=== PATIENT | male | born 1990 | race Caucasian/White ===

== ENCOUNTER 2022-03-19 15:55 | Inpatient (IN) | payer MEDICAID ==
[~2022-03-19] VITALS: Ht 182.9 cm; Wt 83.9 kg
[2022-03-19 16:03] VITALS: BP 120/62
--- NOTE | 2022-03-19 16:23 | NUR ---
31YO MALE PT C/O SHARP 10/10 L LEG PAIN X1WEEK. REPORTS INITIAL SWELLING AFTER "PICKING AT [facility]". PRESENTS W/ ABSCESS IN L UPPER LEG : + REDDENED, HOT AND TENDER TO TOUCH . MILD SWELLING NOTED AROUND, CAP REFILL <3 THROUGHOUT. PAIN AT MOST ON MOVEMENT .NOTES "YELLOW, WHITE AND RED " DRAINAGE ON PRESSURE, NO ACTIVE DRAINAGE AT THIS TIME. REPORTS NAUSEA , CHILLS AND FEVER OF 101.0 xtoday W/ RELIEF AFTER TAKING IBUPROFEN. DENIES V/D, CHEST PAIN OR SOB. PT AAOX4, ON BUILD AND DEPLOYMENT ENGINEER. HX: DENIES NKA
[2022-03-19] MEDS ORDERED: LIDOCAINE/EPI 2% 1:100000 20 ML VIAL INJ ONE (16:30)
--- NOTE | 2022-03-19 16:54 | NUR ---
pt swabbed for covid(luis). handed to lab
[2022-03-19] MEDS ORDERED: VANCOMYCIN 1,000 MG in DEXTROSE 5% 250 ML IV ONE (16:55)
[2022-03-19] MEDS ORDERED: ACETAMINOPHEN 325 MG TAB PO ONE (16:55)
[2022-03-19] MEDS ORDERED: PIPERACILLIN/TAZOBACTAM 3.375 GM in DEXTROSE 5% 50 ML IV ONE (16:55)
[2022-03-19] MEDS ORDERED: ONDANSETRON 4 MG/2 ML VIAL IVP ONE (16:55)
[2022-03-19] MEDS ORDERED: NACL 0.9% 3,000 ML IV ONE (16:55)
[2022-03-19] MEDS ORDERED: MORPHINE SULFATE 4 MG/ML SYR IVP ONE (16:55)
[2022-03-19] MEDS ORDERED: VANCOMYCIN 1,000 MG VIAL ONE (17:09)
[2022-03-19] MEDS ORDERED: PIPERACILLIN/TAZOBACTAM 3.375 GM VIAL IV ONE (17:11)
[2022-03-19 17:18] LABS: BASOPHILS # (AUTO) 0.1 K/uL (0.00-0.22); BASOPHILS % (AUTO) 0.6 % (0.0-2.0); EOSINOPHILS % (AUTO) 0.2 % (0.0-4.0); HEMATOCRIT 39.2 % (36-52); HEMOGLOBIN 13.3 g/dL (12.0-18.0); LYMPHOCYTES # (AUTO) 1.1 K/uL (2.0-11.5); LYMPHOCYTES % (AUTO) 8.9 % (20.5-51.1); MEAN CORPUSCULAR HEMOGLOBIN 30 pg (27-31); MEAN CORPUSCULAR HGB CONC 34 g/dL (33-37); MEAN CORPUSCULAR VOLUME 88.6 fL (80-94); MONOCYTES # (AUTO) 1.1 K/uL (0.8-1.0); MONOCYTES % (AUTO) 8.8 % (1.7-9.3); NEUTROPHILS # (AUTO) 10.4 K/uL (1.8-7.7); NEUTROPHILS % (AUTO) 81.5 % (42.2-75.2); PLATELET COUNT (AUTO) 306 K/uL (140-450); RED BLOOD CELL COUNT(AUTO) 4.43 MIL/uL (4.20-6.10); RED CELL DISTRIBUTION WIDTH 13.2 % (11.6-13.7); WHITE BLOOD COUNT (AUTO) 12.8 K/uL (4.8-10.8)
--- NOTE | 2022-03-19 17:20 | NUR ---
PT TAKEN TO XRAY VIA [facility]
--- NOTE | 2022-03-19 17:37 | NUR ---
PT BROUGHT BACK VIA LI[facility]
[2022-03-19 17:39] LABS: PROTHROMBIN TIME 10.2 secs (10.8-13.4)
[2022-03-19 17:42] LABS: ALBUMIN 3.2 g/dL (3.4-5.0); ANION GAP 10.5 (8-16); CARBON DIOXIDE 28.2 mmol/L (21-32); POTASSIUM 3.7 mmol/L (3.5-5.1); TOTAL BILIRUBIN 0.5 mg/dL (0.0-1.0)
[2022-03-19] MEDS ORDERED: ONDANSETRON 4 MG/2 ML VIAL IM/IVP PRN (19:05)
[2022-03-19] MEDS ORDERED: POTASSIUM CHLORIDE 10 MEQ TABER PO PRN (19:05)
[2022-03-19] MEDS ORDERED: SODIUM PHOS / POTASSIUM PHOS 1 PKT PDR PO PRN (19:05)
[2022-03-19] MEDS ORDERED: DOCUSATE SODIUM 100 MG GELCAP PO PRN (19:05)
[2022-03-19] MEDS ORDERED: MAGNESIUM OXIDE 400 MG TAB PO PRN (19:05)
[2022-03-19] MEDS ORDERED: MORPHINE SULFATE 2 MG/ML SYR IVP PRN (19:05)
[2022-03-19] MEDS ORDERED: VANCOMYCIN PER PHARMACY MC PRN (19:10)
[2022-03-19] MEDS: NACL 0.9% 1,000 ML IV SCH (19:34)
--- NOTE | 2022-03-19 19:40 | NUR ---
REPORT GIVEN TO EMMANUEL JOSHUA. TRANSFER OF CARE AT THIS TIME
[2022-03-19 19:42] LABS: MAGNESIUM 1.7 mg/dL (1.8-2.4); PHOSPHORUS 3.2 mg/dL (2.5-4.9)
--- NOTE | 2022-03-19 20:09 | NUR ---
Note jada in EDM - 03/19/22 at 7 by RICARDO Patient discharged with v/s stable. Written and verbal after care instructions given and explained. Patient verbalized understanding. Ambulatory with steady gait. All questions addressed prior to discharge. Advised to follow up with PMD.
--- NOTE | 2022-03-19 20:09 | NUR ---
Patient will be admitted to care of [facility]. Admited to [facility]. Will go to [id number]. Belongings list completed. Report to GERARDO MOON.
--- NOTE | 2022-03-19 22:00 | NUR ---
RECEIVED REPORT FROM ANN FERNÁNDEZ RN FOR CONTINUITY OF CARE. PT ARRIVED ON MST UNIT FROM ER VIA GURNEY. PT IS STABLE. A&OX4. DENIES PAIN AT THIS TIME. ON ROOM AIR/O2 WITH NO ACUTE DISTRESS. RR EVEN AND UNLABORED WITH EQUAL CHEST RISE. GI INTACT. PT'S SKIN WITH L INNER THIGH ABSCESS RAISED SKIN AND HOT TO TOUCH. WD IS DRY AT THIS TIME. PT IS AMBULATORY AND CONTINENT. IV'S RAC 20G AND LAC 20G. IVF NS@40CC/HR. ABX'S ROCEPHIN AND VANCOMYCIN. ALL SAFETY MEASURES IN PLACE. BED IN LOW AND LOCKED POSITION. CALL LIGHT WITHIN REACH. WILL CONTINUE TO MONITOR.
[2022-03-19] MEDS ORDERED: cefTRIAXone 1,000 MG VIAL ONE (22:35)
[2022-03-20] MEDS ORDERED: VANCOMYCIN 1,000 MG in DEXTROSE 5% 250 ML IV ONE (01:00)
[2022-03-20] MEDS ORDERED: VANCOMYCIN 1,000 MG VIAL ONE (03:09)
--- NOTE | 2022-03-20 03:37 | NUR ---
C/O L THIGH PAIN 10/11. MEDICATED WITH NORCO 1 TAB. REASSESSED PAIN LEVEL @0430. EFFECTIVE PT SLEEPING RR EVEN AND UNLABORED NAD. VSS: BP-116/73, P-72, RR-18, T-98.9, O2 SAT=99% ON RM AIR. STILL NEED URINE SPECIMEN FOR DRUG SCREEN. WILL ENDORSE TO DAY SHIFT TO FOLLOW UP.
[2022-03-20] MEDS: HYDROcodone/APAP 5/325 MG 1 TAB TAB PO PRN (03:38)
[2022-03-20 05:57] LABS: BASOPHILS % (AUTO) 0.2 % (0.0-2.0); EOSINOPHILS # (AUTO) 0.1 K/uL (0-0.4); EOSINOPHILS % (AUTO) 0.5 % (0.0-4.0); HEMATOCRIT 34.9 % (36-52); HEMOGLOBIN 11.5 g/dL (12.0-18.0); LYMPHOCYTES % (AUTO) 15.3 % (20.5-51.1); MEAN CORPUSCULAR HEMOGLOBIN 29 pg (27-31); MEAN CORPUSCULAR HGB CONC 33 g/dL (33-37); MEAN CORPUSCULAR VOLUME 88.3 fL (80-94); MONOCYTES # (AUTO) 1.3 K/uL (0.8-1.0); MONOCYTES % (AUTO) 10.1 % (1.7-9.3); NEUTROPHILS # (AUTO) 9.7 K/uL (1.8-7.7); NEUTROPHILS % (AUTO) 73.9 % (42.2-75.2); PLATELET COUNT (AUTO) 281 K/uL (140-450); RED BLOOD CELL COUNT(AUTO) 3.95 MIL/uL (4.20-6.10); RED CELL DISTRIBUTION WIDTH 13.1 % (11.6-13.7); WHITE BLOOD COUNT (AUTO) 13.1 K/uL (4.8-10.8)
[2022-03-20 06:10] LABS: ANION GAP 7.8 (8-16); CARBON DIOXIDE 28.2 mmol/L (21-32); CREATININE 0.9 mg/dL (0.6-1.3)
--- NOTE | 2022-03-20 07:20 | NUR ---
ENDORSED PATIENT TO AM NURSE CLAIRE JOSHUA FOR CONTINUITY OF CARE. PT IS STABLE. ALL NEEDS MET THROUGHOUT THE SHIFT.
[2022-03-20] MEDS ORDERED: VANCOMYCIN PER PHARMACY MC PRN (07:30)
--- NOTE | 2022-03-20 07:30 | NUR ---
RECEIVED PT FROM COMMUNITY HEALTH DIRECTOR NURSE. PT IN BED TALKING ON PHONE. RESPIRATIONS EVEN AND UNLABORED ON RA. LAYING DOWN IN BED WITH A LITTLE BLOOD RUNNING FROM ABSCESS SITE. PT STATES " I GOT UP TO GO TO RESTROOM AND WHEN I GOT BACK IT JUST STARTED BLEEDING. I DIDNT PICK AT IT. IT HURTS" CLEANED BLOOD OFF PT, NURSE ASKED PT IF HE WOULD LIKE MEDICATION FOR PAIN. PT STATES HE DOESNT WANT ANY MEDICATION FOR IT RIGHT NOW. GOT ON CELL PHONE TO TALK TO GIRLFRIEND. IV ON LEFT AND RIGHT A/C 20G BILATERAL. CALL LIGHT WITHIN REACH. ALL SAFETY PRECAUTIONS IN PLACE.
[2022-03-20 08:00] VITALS: BP 126/74
--- NOTE | 2022-03-20 09:25 | NUR ---
PATIENT HAS BEEN SCREENED AND CATEGORIZED LOW NUTRITION RISK. PATIENT WILL BE SEEN WITHIN 7 DAYS OF ADMISSION. 03/26/22 REVIEWED BY LIBBY CLAYTON RD
[2022-03-20] MEDS: PANTOPRAZOLE 40 MG TABEC PO SCH (09:48)
--- NOTE | 2022-03-20 11:00 | NUR ---
PT GIRLFRIEND IN ROOM CALLS NURSE TO CLEAN PT DRAINING BOIL. SKIN CLEANED WITH SALINE.
[2022-03-20 12:00] VITALS: BP 126/67
[2022-03-20 12:00] LABS: BARBITURATE, URINE NEGATIVE ng/ml (NEG <=200); BENZODIAZEPINE, URINE NEGATIVE ng/mL (NEG <=200); CANNABINOID, URINE POSITIVE ng/mL (NEG <=50); COCAINE, URINE NEGATIVE ng/mL (NEG <=300); OPIATE, URINE POSITIVE ng/mL (NEG <=2000); PHENCYCLIDINE SCREEN,URINE NEGATIVE ng/mL (NEG <=25)
--- NOTE | 2022-03-20 13:00 | NUR ---
PT REQUEST MEDICATION FOR CONSTIPATION. NURSE OFFERED COLACE PT REFUSED. STATED HE LIKES SUPPOSITORIES, BECAUSE THEY WORK BETTER FOR HIM. INFORMED DR NY AWAITING RESPONSE.
[2022-03-20] MEDS: VANCOMYCIN HCL 1.25 GM in DEXTROSE 5% 250 ML IV SCH ×2 (13:57→14:06)
[2022-03-20] MEDS ORDERED: bisacodyL 10 MG SUPP RC PRN (14:05)
--- NOTE | 2022-03-20 14:05 | NUR ---
PT REQUESTED COLACE AND SAID HE DIDNT WANT TO TAKE SUPPOSITORY ANYMORE.
[2022-03-20] MEDS: ACETAMINOPHEN 325 MG TAB PO PRN (15:40)
--- NOTE | 2022-03-20 15:40 | NUR ---
PATIENT REQUESTED FOR HIV TEST INFORM DR. NY AND HE AGREED ORDER NOTED AND CARRIED OUT PATIENT AWARE. PATIENT NOTED WITH TEMPERATURE OF 100.4 GIVEN TYLENOL AND ENCOURAGE NOT TO PUT LOTS OF BLANKET. PATIENT ALSO COMPLAINING THAT HE IS HAVING WITHDRAWAL FROM METH AND ASKING FOR MEDICATION.
--- NOTE | 2022-03-20 15:45 | NUR ---
KELVIN PLANNING ALAN MET WITH PT AT BEDSIDE TO COMPLETE ASSESSMENT. PT REPORTS RESIDING IN A SINGLE STORY HOME WITH HIS PARENTS AT THE ADDRESS LISTED. PT REPORTS FREQUENTLY STAYING WITH HIS PARTNER IN [place]. PT IDENTIFIED MIKE ROBERT, PARTNER, AN MARINA WALTERS, DAD, EMERGENCY CONTACTS. PT REPORTS HAVING NOT MET WITH HIS PCP. PT REPORTS BEING INCARCERATED FOR 16 YRS AND REPORTS HE WAS RECENTLY RELEASED FROM [facility] IN DEC 22. PT DENIES TAKING MEDICATION AT THIS TIME AND DENIES BARRIERS IN ACCESS TO MEDICATION. PT REPORTS RECEIVING MEDICATION FROM [facility] [address] IN [place], WHEN NEEDED. PT REPORTS PRIOR TO THIS HOSPITALIZATION BEING INDEPENDENT IN ALL ACTIVITIES HOWEVER, PAIN IN HIS LEG HAS INCREASINGLY BEEN DIFFICULT TO WALK ON. PT REPORTS RECENT USE OF WALKER/CANE. PT REPORTS SUBSTANCE USE HX OF METH USE, USE BEGAN ROUGHLY 11 MONTHS AGO. PT REPORTS TWO ATTEMPTS OF SOBER LIVING HOMES HOWEVER, PT REPORTS HE ELOPED DUE TO OTHER DRUG USE IN THE HOME. PT REPORTS USE HAS INCREASINGLY INCREASED, PT REPORTS HE BEGAN INJECTING METH AND BELIEVES THAT IS WHY HE IS CURRENTLY HOSPITALIZED BC HE CAN PICKING AT [facility]. SW PROVIDED PT WITH PSYCHO EDUCATION ON NURSING HOME METH USE. PT RECEPTIVE AND ACCEPTED SUBSTANCE USE RESOURCES. PT REPORTS FAMILY STRESSORS AND REPORTS USE A COPING METHOD. PT ACCEPTED MENTAL HEALTH RESOURCES OFFERED BY ALAN. PT REPORTS MENTAL HEALTH HX OF BIPOLAR D/O AND ADHD THAT ARE NOT MANAGED BY MENTAL HEALTH PROFESSIONAL. SW ENCOURAGED PT TO UTILIZE MENTAL HEALTH RESOURCES PROVIDED. PT DENIES HX OF DIABETES, HH, DIALYSIS TX. SW INQUIRED ON ADDITIONAL RESOURCES NEEDED, PT DECLINED. Addendum: 03/21/22 at 0834 by Maryellen SHARIF Amended: Links added.
[2022-03-20 16:00] VITALS: BP 126/67
[2022-03-20] MEDS: NACL 0.9% 1,000 ML IV SCH (16:37)
--- NOTE | 2022-03-20 16:49 | NUR ---
PT REQUESTS MEDICATION FOR WITHDRAWAL. REEQUESTS FOR ATIVAN. INFORMED DR NY AWAITING RESPONSE.
--- NOTE | 2022-03-20 17:03 | NUR ---
PT NOTED WITH A TEMP OF 100. REMOVED BLANKETS AND PLACED ICE PACKS. PT ON PHONE WITH GIRLFRIEND.
--- NOTE | 2022-03-20 17:16 | NUR ---
PT REQUESTS MEDICATION FOR WITHDRAWAL. REEQUESTS FOR ATIVAN. INFORMED DR NY AWAITING RESPONSE. Addendum: 03/20/22 at 1717 by Ana Bermeo LVN WRONG TIME
[2022-03-20] MEDS: chlordiazePOXIDE 25 MG CAP PO SCH (17:30)
--- NOTE | 2022-03-20 17:36 | NUR ---
WENT IN PT ROOM TO INFORM HIM DR KAVIN MACIEL PER HIS REQUEST OF A MEDICATION TO REDUCE HIS ANXIETY DUE TO WITHDRAWAL. PT ASKED ABOUT SIDE EFFECTS AND NURSE PROVIDED EDUCATION REGARDING MEDICATION. PT REFUSED MEDICATION STATED "THIS MEDICATION MIGHT GIVE ME MORE ANXIETY I DONT WANT TO TAKE ANYTHING THAT MIGHT CONSTIPATE ME".
--- NOTE | 2022-03-20 18:18 | NUR ---
PT REQUEST TO GO TAKE A SHOWER IN [place]. INFORMED DR NY AND DR CHAVEZ PT IS NOT STABLE ENOUGH FOR SHOWER. PT INFORMED AND GIRLFRIEND AT BEDSIDE REQUESTED TO GIVE PT A SPONGE BATH.
--- NOTE | 2022-03-20 19:26 | NUR ---
ENDORSED PT TO PARADICHLOROBENZENE TENDER NURSE FOR CONTINUITY OF CARE. PT IN STABLE CONDITION. ALL NEEDS MET THROUGHOUT SHIFT.
[2022-03-20] MEDS: PIPERACILLIN/TAZOBACTAM 3.375 GM in DEXTROSE 5% 50 ML IV SCH ×2 (19:37→23:41)
[2022-03-20 20:00] VITALS: BP 125/75
[2022-03-21] VITALS: BP 130/77
--- NOTE | 2022-03-21 02:20 | NUR ---
RECEIVED REPORT FROM SHEN MOON. PATIENT IN NO APPARENT PAIN OR DISTRESS. WILL TAKE OVER CARE OF PATIENT AT THIS TIME. WILL CONTINUE TO MONITOR.
[2022-03-21] MEDS: NACL 0.9% 1,000 ML IV SCH ×3 (02:37→22:37)
[2022-03-21 04:00] VITALS: BP 122/92
[2022-03-21] MEDS: VANCOMYCIN HCL 1.25 GM in DEXTROSE 5% 250 ML IV SCH ×3 (04:48→20:10)
[2022-03-21] MEDS: ACETAMINOPHEN 325 MG TAB PO PRN ×2 (06:35→18:27)
[2022-03-21] MEDS: PIPERACILLIN/TAZOBACTAM 3.375 GM in DEXTROSE 5% 50 ML IV SCH ×4 (06:44→23:51)
--- NOTE | 2022-03-21 07:34 | NUR ---
RECEIVED SEQUINS SLINGER REPORT FROM SEQUINS SLINGER NURSE. PT IS STABLE. NO DISTRESS NOTED. WILL CONTINUE TO MONITOR.
[2022-03-21 08:00] VITALS: BP 127/86
[2022-03-21] MEDS: chlordiazePOXIDE 25 MG CAP PO SCH ×3 (09:00→17:00)
[2022-03-21] MEDS: PANTOPRAZOLE 40 MG TABEC PO SCH (09:05)
--- NOTE | 2022-03-21 09:45 | NUR ---
ALL MEDS GIVEN. PT IS STABLE.NO DISTRESS NOTED. WILL CONTINUE TO MONITOR.
--- NOTE | 2022-03-21 10:19 | NUR ---
WOUND CARE NOTE: WOUND ASSESSMENT DONE TO THIS 31 Y/O PT. AAX4. PT. ADMITTED LEFT ANTERIOR THIGH CELLULITIS. BLE FROM THIGHS TO LOWER LEGS WITH MULTIPLE DRY STABLE SCABS. PT. DENY NEEDLE PUNCTURES. LEFT ANTERIOR THIGH 2X2X0.1CM WOUND BED PALE PINK, SCAN AMOUNT PURULENT DRAINAGE, NO ODOR, ERASTO-WOUND SKIN INTACT ERYTHEMA WITH SLIGHTLY INDURATION, PER ULTRA SOUND REPORT SHOWS NO ABSCESS. POC DISCUSSED WITH PT WITH WOUND CARE TEACHING DONE. PT VERBALIZES UNDERSTANDING. POC DISCUSSED WITH PRIMARY RN SOFIE. RECOMMENDATION: -CLEANSE LEFT ANTERIOR THIGH WOUND WITH WOUND CARE SOLUTION, PAT DRY, APPLY SILVASORB GEL AND COVER WITH DRY DRESSING QD AND PRN IF SOILING
[2022-03-21] MEDS: GAUZE TP SCH (12:04)
[2022-03-21 12:15] LABS: BASOPHILS # (AUTO) 0.1 K/uL (0.00-0.22); BASOPHILS % (AUTO) 0.5 % (0.0-2.0); EOSINOPHILS # (AUTO) 0.1 K/uL (0-0.4); EOSINOPHILS % (AUTO) 0.9 % (0.0-4.0); HEMATOCRIT 37.7 % (36-52); HEMOGLOBIN 12.6 g/dL (12.0-18.0); LYMPHOCYTES # (AUTO) 2.4 K/uL (2.0-11.5); LYMPHOCYTES % (AUTO) 21.7 % (20.5-51.1); MEAN CORPUSCULAR HEMOGLOBIN 30 pg (27-31); MEAN CORPUSCULAR HGB CONC 34 g/dL (33-37); MONOCYTES # (AUTO) 1.1 K/uL (0.8-1.0); MONOCYTES % (AUTO) 10.1 % (1.7-9.3); NEUTROPHILS # (AUTO) 7.4 K/uL (1.8-7.7); NEUTROPHILS % (AUTO) 66.8 % (42.2-75.2); PLATELET COUNT (AUTO) 345 K/uL (140-450); RED BLOOD CELL COUNT(AUTO) 4.23 MIL/uL (4.20-6.10); RED CELL DISTRIBUTION WIDTH 12.9 % (11.6-13.7)
[2022-03-21 12:40] LABS: ANION GAP 9.5 (8-16); CARBON DIOXIDE 32.2 mmol/L (21-32); POTASSIUM 3.7 mmol/L (3.5-5.1)
--- NOTE | 2022-03-21 13:10 | NUR ---
CHECKED ON PATIENT. PT IS STABLE.NO DISTRESS NOTED. WILL CONTINUE TO MONITOR.
[2022-03-21 16:00] VITALS: BP 144/74
--- NOTE | 2022-03-21 19:34 | NUR ---
ENDORSED TO SALES AND SERVICE SPECIALIST NURSE FOR CONTINUITY OF CARE. PT IS STABLE.
--- NOTE | 2022-03-21 19:35 | NUR ---
RECEIVED REPORT FROM DAY SHIFT RN SOFIE FOR CONTINUITY OF CARE. PT IS AAOX4 ON RA. PT IS AMBULATORY GAIT STEADY. PT HAS RIGHT AC 20 GAUGE WITH NS 100 CC/HR. PT HAS LEFT THIGH CELLULITIS. PLAN OF CARE DISCUSSED. WILL CONTINUE TO MONITOR THE PT.
[2022-03-21 20:00] VITALS: BP 157/92
--- NOTE | 2022-03-21 20:18 | NUR ---
SCHEDULE VANCO GIVEN. NO OTHER COMPLAINS. WILL CONTINUE TO MONITOR THE PT.
--- NOTE | 2022-03-21 23:57 | NUR ---
SCHEDULE ZOSYN GIVEN. PT IS AWAKE AND HAS NO OTHER COMPLAINS AT THIS TIME. WILL CONTINUE TO MONITOR THE PT.
--- NOTE | 2022-03-22 03:15 | NUR ---
PT OBSERVED. PT IS SLEEPING IN BED. BREATHING EVEN AND UNLABORED. PT NOT IN ANY ACUTE DISTRESS. CALL LIGHT WITHIN REACH. WILL CONTINUE TO MONITOR THE PT.
[2022-03-22 04:00] VITALS: BP 125/65
[2022-03-22] MEDS: ACETAMINOPHEN 325 MG TAB PO PRN (04:03)
--- NOTE | 2022-03-22 04:05 | NUR ---
PT COMPLAIN OF PAIN ON THE RIGHT ARM. PT COMPLAINS PAIN OF 5/10. PT DOES NOT WANT ANY NORCO OR MORPHINE. PT ASK FOR TYLENOL AND WAS GIVEN.
[2022-03-22] MEDS: VANCOMYCIN HCL 1.25 GM in DEXTROSE 5% 250 ML IV SCH ×3 (04:37→20:42)
[2022-03-22 06:01] LABS: BASOPHILS % (AUTO) 0.3 % (0.0-2.0); EOSINOPHILS # (AUTO) 0.1 K/uL (0-0.4); EOSINOPHILS % (AUTO) 0.8 % (0.0-4.0); HEMATOCRIT 35.1 % (36-52); HEMOGLOBIN 11.9 g/dL (12.0-18.0); LYMPHOCYTES # (AUTO) 2.1 K/uL (2.0-11.5); LYMPHOCYTES % (AUTO) 20.4 % (20.5-51.1); MEAN CORPUSCULAR HEMOGLOBIN 30 pg (27-31); MEAN CORPUSCULAR HGB CONC 34 g/dL (33-37); MEAN CORPUSCULAR VOLUME 87.4 fL (80-94); MONOCYTES % (AUTO) 9.9 % (1.7-9.3); NEUTROPHILS # (AUTO) 7.1 K/uL (1.8-7.7); NEUTROPHILS % (AUTO) 68.6 % (42.2-75.2); PLATELET COUNT (AUTO) 341 K/uL (140-450); RED BLOOD CELL COUNT(AUTO) 4.01 MIL/uL (4.20-6.10); RED CELL DISTRIBUTION WIDTH 13.1 % (11.6-13.7); WHITE BLOOD COUNT (AUTO) 10.3 K/uL (4.8-10.8)
[2022-03-22 06:37] LABS: ANION GAP 11.7 (8-16); CARBON DIOXIDE 29.1 mmol/L (21-32); POTASSIUM 3.8 mmol/L (3.5-5.1)
[2022-03-22] MEDS: PIPERACILLIN/TAZOBACTAM 3.375 GM in DEXTROSE 5% 50 ML IV SCH ×3 (06:46→17:56)
--- NOTE | 2022-03-22 07:10 | NUR ---
ENDORSED PT TO DAY SHIFT RN PANFILO FOR CONTINUITY OF CARE. PT IS STABLE.
[2022-03-22 08:00] VITALS: BP 131/78
[2022-03-22] MEDS: NACL 0.9% 1,000 ML IV SCH ×2 (08:37→18:38)
[2022-03-22] MEDS: PANTOPRAZOLE 40 MG TABEC PO SCH (08:55)
[2022-03-22] MEDS: chlordiazePOXIDE 25 MG CAP PO SCH ×3 (08:56→17:00)
[2022-03-22] MEDS: GAUZE TP SCH (13:02)
[2022-03-22 16:00] VITALS: BP 126/65
[2022-03-22] MEDS: HYDROcodone/APAP 5/325 MG 1 TAB TAB PO PRN (17:57)
[2022-03-22] MEDS ORDERED: MELATONIN 3 MG TAB PO PRN (19:15)
--- NOTE | 2022-03-22 19:30 | NUR ---
RECEIVED PT FROM AM NURSE FOR CONTINUITY OF CARE. PT IS STABLE
[2022-03-23] MEDS: PIPERACILLIN/TAZOBACTAM 3.375 GM in DEXTROSE 5% 50 ML IV SCH ×3 (00:14→12:00)
--- NOTE | 2022-03-23 02:00 | NUR ---
PATIENT ASLEEP, NO DISTRESS NOTED, ALL SAFETY MEASURES IN PLACE,CALL LIGHT WITHIN EASY REACH
[2022-03-23 04:00] VITALS: BP 114/55
[2022-03-23] MEDS: NACL 0.9% 1,000 ML IV SCH (04:37)
[2022-03-23 05:45] LABS: ANION GAP 13.6 (8-16); CARBON DIOXIDE 28.3 mmol/L (21-32); CREATININE 0.9 mg/dL (0.6-1.3); POTASSIUM 3.9 mmol/L (3.5-5.1)
[2022-03-23] MEDS: VANCOMYCIN HCL 1.25 GM in DEXTROSE 5% 250 ML IV SCH ×2 (05:45→13:00)
[2022-03-23 05:49] LABS: BASOPHILS % (AUTO) 0.3 % (0.0-2.0); EOSINOPHILS # (AUTO) 0.2 K/uL (0-0.4); EOSINOPHILS % (AUTO) 2.2 % (0.0-4.0); HEMATOCRIT 35.3 % (36-52); LYMPHOCYTES # (AUTO) 2.1 K/uL (2.0-11.5); LYMPHOCYTES % (AUTO) 24.6 % (20.5-51.1); MEAN CORPUSCULAR HEMOGLOBIN 30 pg (27-31); MEAN CORPUSCULAR HGB CONC 34 g/dL (33-37); MEAN CORPUSCULAR VOLUME 87.6 fL (80-94); MONOCYTES % (AUTO) 11.6 % (1.7-9.3); NEUTROPHILS # (AUTO) 5.2 K/uL (1.8-7.7); NEUTROPHILS % (AUTO) 61.3 % (42.2-75.2); PLATELET COUNT (AUTO) 367 K/uL (140-450); RED BLOOD CELL COUNT(AUTO) 4.03 MIL/uL (4.20-6.10); RED CELL DISTRIBUTION WIDTH 12.9 % (11.6-13.7); WHITE BLOOD COUNT (AUTO) 8.5 K/uL (4.8-10.8)
--- NOTE | 2022-03-23 07:33 | NUR ---
ENDORSED PT TO AM NURSE, PT IS STABLE
[2022-03-23] MEDS: chlordiazePOXIDE 25 MG CAP PO SCH ×2 (09:00→13:00)
[2022-03-23] MEDS: PANTOPRAZOLE 40 MG TABEC PO SCH (09:42)
[2022-03-23] MEDS: HYDROcodone/APAP 5/325 MG 1 TAB TAB PO PRN ×2 (09:44→13:32)
[2022-03-23] MEDS ORDERED: TRAM100C2 PO (10:40)
[2022-03-23 10:56] VITALS: BP 128/76
[2022-03-23 12:00] VITALS: BP 124/60
[2022-03-23] MEDS: GAUZE TP SCH (13:00)
--- NOTE | 2022-03-23 13:00 | NUR ---
Received patient this AM, patient was dressed and ready to go at 0800 AM. Contacted MD for discharge orders. Patient was given breakfast and patient removed his own IV because he was ready to go. MD came to see patient in mid morning and patient was given DC orders. Spoke with patient regarding COVID, FLU & PNEUMONIA and patient refused all vaccinations as he has gotten them or doesn't need them. Patient received discharge papers, written RX and was escorted by RN to an [facility]BER for transport to home. Spent approximately 1 hour discussing options regarding stopping drug use and pointer about things to do to stay sober as well as NA contact info. Patient stated all questions were answered and patient walked to [facility] with RN carrying patient belonging bag as patient left using walker. No sign or symptoms of acute distress upon discharge.
== END 2022-03-23 13:00 | disposition home or self-care (01) | DRG 720 ==
LOC: EDSEX 15:55 → MED 15:55 → EDBEDREQTM 18:12 → MMU 18:48 → MTU 20:19
PROVIDERS: ADMIT Hospitalist; ATTEND Hospitalist
DX: A41.9 Sepsis, unspecified organism (principal); E44.1 Mild protein-calorie malnutrition; E83.51 Hypocalcemia; E87.1 Hypo-osmolality and hyponatremia; L03.116 Cellulitis of left lower limb; E83.42 Hypomagnesemia; B19.20 Unspecified viral hepatitis C without hepatic coma; F15.90 Other stimulant use, unspecified, uncomplicated; E86.0 Dehydration; F10.10 Alcohol abuse, uncomplicated; Y90.9 Presence of alcohol in blood, level not specified; Z20.822 Contact with and (suspected) exposure to COVID-19; Z68.25 Body mass index [BMI] 25.0-25.9, adult
CPT/HCPCS: 36415; 71045; 76881; 80048; 80053; 80202; 80305; 82550; 82553; 83036; 83605; 83735; 83874; 83880; 84100; 84484; 85025; 85610; 85730; 87040; 87070; 87075; 87081; 87086; 87186; 87205; 93005; 96365; 96368; 99285; J0696; J2001; J2270; J2405; J2543; J3370; J7060; Q0092